=== PATIENT | female | born 1975 | race Hispanic/Latino ===

== ENCOUNTER → 2019-03-24 | Day surgery (SDC) | payer BC ==
[~2019-03-24] MED LIST: BP MED PO; METOCLOPRAMIDE10 MG PO; MIDAZOLAM HCL 2 MG/2 ML VIAL ONE; NIFEDIPINE ER30 M1 PO; PHOSLO PO; SODIUM CHLORIDE 0.9% 500ML 500 ML ONE; ZOFRAN8 MG SL
[2019-03-24 11:02] LABS: BASOPHILS # (AUTO) 0.2 (0.0-0.1); BASOPHILS % 1.3 % (0.0-1.0); EOSINOPHILS # (AUTO) 0.8 (0.0-0.4); EOSINOPHILS % 5.7 % (0.0-6.0); HEMATOCRIT 39.9 % (34.2-44.1); HEMOGLOBIN 13.3 g/dL (12.0-16.0); LYMPHOCYTES # (AUTO) 1.5 (1.0-3.2); MEAN CORPUSCULAR HGB CONC 33.3 g/dL (31-35); MEAN CORPUSCULAR VOLUME 95.9 fL (81-99); MONOCYTES % 7.7 % (4.4-11.3); NEUTROPHILS # (AUTO) 9.8 (2.1-6.9); NEUTROPHILS % 73.8 % (38.7-80.0); PLATELET COUNT 407 x10e3/uL (140-360); RED BLOOD COUNT 4.16 x10e6/uL (3.6-5.1); RED CELL DISTRIBUTION WIDTH 14.7 % (11.7-14.4)
[2019-03-24 12:05] VITALS: BP 139/84
--- NOTE | 2019-03-24 18:34 | Operative Report ---
DATE OF PROCEDURE: 03/24/2019 SURGEON: Bobo Hernandez MD PROCEDURE PERFORMED: Colonoscopy. PREOPERATIVE DIAGNOSIS: Colon cancer screening. POSTOPERATIVE DIAGNOSIS: Colon cancer screening. No colon polyps found. Normal colon exam. PREOPERATIVE MEDICATIONS: Consisted of MAC anesthesia. PROCEDURE IN DETAIL: Using an Olympus GazeHawk video colonoscope, it was inserted into the patient's rectum and advanced without difficulty to the level of cecum. Solid stool was present through out the colon, but did not obscure the view of the lining. The colonoscope was withdrawn from the patient's cecum back down to the rectum. No polypoid lesions masses or inflammatory changes were encountered. No diverticula were seen. The colonoscope was withdrawn from the patient's rectum and the procedure was ended. In completion, there were findings of normal colon exam. Bobo Hernandez MD SAF/MODL /[id number]
== END | disposition home or self-care (01) ==
LOC: OR 09:40
PROVIDERS: ATTEND Internal Medicine Gastroenterology
DX: K59.00 Constipation, unspecified (principal); K21.9 Gastro-esophageal reflux disease without esophagitis; R73.03 Prediabetes; I12.0 Hypertensive chronic kidney disease with stage 5 chronic kidney disease or end stage renal disease; N18.6 End stage renal disease; Z88.6 Allergy status to analgesic agent
CPT/HCPCS: 36415; 45378; 81025; 84132; 85025; 93005; J2250; J7040